=== PATIENT | male | born 1980 ===

== ENCOUNTER 2022-11-06 13:58 | Emergency (ER) | payer BC, OTHER ==
[2022-11-06] MEDS ORDERED: Ketorolac 30 MG/ML SDV IM ONE (14:04)
[2022-11-06] MEDS ORDERED: Dexamethasone 4 MG/ML SDV IM ONE (14:35)
[2022-11-06] MEDS ORDERED: Bupivacaine 0.5% 30 ML SDV INFILT ONE (15:15)
[2022-11-06] MEDS ORDERED: Diazepam 5 MG Tab PO ONE (15:29)
== END 2022-11-06 16:08 | disposition home or self-care (01) ==
LOC: DL.ED 13:58
DX: M62.830 Muscle spasm of back (principal); E66.9 Obesity, unspecified; Z68.41 Body mass index [BMI] 40.0-44.9, adult
CPT/HCPCS: 99284; A9270; J1100; J1885; J3360; J3490; 20552; 96372; 99283

== ENCOUNTER 2023-11-23 07:52 | Emergency (ER) | payer OTHER ==
[2023-11-23] MEDS: Cyclobenzaprine 10 MG Tab PO ONE (09:00)
[2023-11-23 09:03] LABS: BASOPHILS PERCENT AUTO 0.7 % (0.0-1.0); EOSINOPHILS PERCENT AUTO 1.7 % (1.0-3.0); HEMATOCRIT 46.4 % (40.0-54.0); HEMOGLOBIN 15.8 g/dL (14.0-18.0); LYMPHOCYTES PERCENT AUTO 28.1 % (20.5-50.1); MEAN CORPUSCULAR HEMOGLOBIN 28.8 pg (27.0-34.0); MEAN CORPUSCULAR HGB CONC 34.1 g/dL (33.0-35.0); MEAN CORPUSCULAR VOLUME 84.7 fL (80-100); MONOCYTES PERCENT AUTO 12.8 % (2-8); NEUTROPHILS PERCENT AUTO 56.7 % (42.2-75.2); PLATELET COUNT,PLT 297 10^3/uL (150-450); RED BLOOD CELL COUNT 5.48 10^6/uL (4.6-6.2); WHITE BLOOD CELL COUNT,WBC 5.7 10^3/uL (5.0-10.0)
[2023-11-23 09:08] LABS: APPEARANCE,URINE CLEAR (CLEAR); BILIRUBIN,URINE SMALL (NEGATIVE); COLOR,URINE YELLOW (YELLOW); GLUCOSE,URINE NEGATIVE (NEGATIVE); KETONES,URINE 80 (NEGATIVE); LEUKOCYTE ESTERASE,URINE NEGATIVE (NEGATIVE); NITRITE,URINE NEGATIVE (NEGATIVE); OCCULT BLOOD,URINE NEGATIVE (NEGATIVE); PH,URINE 5.5 (5.0-9.0); PROTEIN,URINE NEGATIVE (NEGATIVE); UROBILINOGEN,URINE 0.2 mg/dL (0.2-1.0)
[2023-11-23] MEDS: Sodium Chloride 0.9% 1,000 ML IV ONE (09:16)
[2023-11-23] MEDS: Metoclopramide 10 MG/2 ML SDV IVPUSH ONE (09:16)
[2023-11-23] MEDS: fentaNYL 100 MCG/2 ML SDV IVPUSH ONE (09:17)
[2023-11-23] MEDS: Ketorolac 30 MG/ML SDV IVPUSH ONE (09:17)
[2023-11-23] MEDS: Sodium Chloride 0.9% 10 ML Syringe FLUSH PRN (09:18)
[2023-11-23 09:21] LABS: ANION GAP 15.1 mEq/L (7-13); BLOOD UREA NITROGEN,BUN 14 mg/dL (7-18); CALCIUM 9.9 mg/dL (8.5-10.1); CARBON DIOXIDE,CO2 25 mmol/L (21-32); CHLORIDE,CL 100 mmol/L (98-107); CREATINE KINASE,CK 42 U/L (39-308); CREATININE 1.22 mg/dL (0.70-1.30); ESTIMATED GFR 76 mL/min (>=60); GLUCOSE RANDOM 97 mg/dL (70-99); POTASSIUM,K 4.1 mmol/L (3.5-5.1); SODIUM,NA 136 mmol/L (136-145)
== END 2023-11-23 11:03 | disposition home or self-care (01) ==
LOC: DL.ED 07:52
DX: M62.830 Muscle spasm of back (principal); I10 Essential (primary) hypertension; E66.9 Obesity, unspecified; Z68.41 Body mass index [BMI] 40.0-44.9, adult
CPT/HCPCS: 36415; 80048; 81003; 82550; 83735; 85025; 85651; 86140; 96361; 96374; 96375; 99283; A9270; J1885; J2765; J7030; 99284; J3490